=== PATIENT | female | born 1940 | race African-American/Black ===

== ENCOUNTER 2018-02-22 12:49 | Emergency (ER) | payer OTHER ==
[~2018-02-22] VITALS: Ht 170.2 cm; Wt 74.4 kg
[~2018-02-22 12:49] MED LIST: CALCIUM 600 +1 EAC1 PO; COLACE100 MG PO; DULCOLAX10 MG PR; FLEET MINERAL133 ML PR; LIPITOR40 MG PO; LOVENOX40 MG/0.4 SC; MILK OF MAGN PO; NAPROXEN500 MG PO; NORCO 5/3251 TABLET PO; PRILOSEC40 MG PO; ROXICODONE5 MG PO
[2018-02-22 14:34] LABS: HEMATOCRIT 39.9 % (36.0-46.0); HEMOGLOBIN 13.3 G/DL (11.9-15.5); MCHC 33.3 G/DL (30.0-36.0); PLATELET COUNT 217 K/uL (156-360); RBC DIS.WIDTH-CV 12.4 % (11.8-14.6); RBC DIS.WIDTH-SD 45.6 % (39-53); RED BLOOD COUNT 4.03 M/uL (3.80-5.20); WHITE BLOOD COUNT 5.7 K/uL (4.1-10.2)
[2018-02-22 14:46] LABS: CHLORIDE 106 mEq/L (99-109); POTASSIUM 4.1 mEq/L (3.7-5.4); SODIUM 140 mEq/L (136-147)
[2018-02-22 14:47] LABS: GLUCOSE 102 mg/dL (70-99)
[2018-02-22 14:49] LABS: APPEARANCE CLEAR ((CLEAR)); BILIRUBIN NEGATIVE; BLOOD NEGATIVE; COLOR YELLOW ((YELLOW)); GLUCOSE (STRIP) NEGATIVE; KETONES NEGATIVE; LEUKOCYTES NEGATIVE; NITRITE NEGATIVE; PROTEIN (STRIP) NEGATIVE; SPECIFIC GRAVITY 1.015 (1.000-1.030); UCUL ADDED? NO
[2018-02-22 14:51] LABS: GFR ESTIMATE (CALCULATED) > 59 mL/min/
[2018-02-22 14:52] LABS: UREA NITROGEN (BUN) 21 mg/dL (9-23)
[2018-02-22] MEDS ORDERED: ARICEPT5 MG PO (17:24)
[2018-02-22 18:08] LABS: THYROTROPIN (TSH) 2.2 MIU/L (0.4-5.5)
[2018-02-22 18:40] VITALS: BP 148/98
[2018-02-22 19:04] LABS: FOLIC ACID (FOLATE) 9.4 NG/ML (5.0-22.0)
[2018-02-23 10:25] LABS: TREPONEMA ANTIBODY NEGATIVE (NEGATIVE)
== END 2018-02-22 18:40 | disposition home or self-care (01) ==
LOC: EME 12:49
PROVIDERS: Nurse Practitioner Family
DX: F60.9 Personality disorder, unspecified (principal); I49.3 Ventricular premature depolarization; I49.1 Atrial premature depolarization; I45.4 Nonspecific intraventricular block; I51.7 Cardiomegaly; R94.31 Abnormal electrocardiogram [ECG] [EKG]; G89.29 Other chronic pain; M25.561 Pain in right knee; E11.9 Type 2 diabetes mellitus without complications; I10 Essential (primary) hypertension; E78.5 Hyperlipidemia, unspecified; M19.90 Unspecified osteoarthritis, unspecified site
CPT/HCPCS: 80048; 81003; 82607; 82746; 84443; 85027; 86780; 90839; 93005; 99281; 99285